=== PATIENT | female | born 1990 | race Two or more races ===

== ENCOUNTER 2025-06-21 07:58 | Outpatient (RCR) | payer MEDICAID, SELFPAY ==
--- NOTE | 2025-06-21 08:40 | PT.OIERPT ---
PT OP Initial Eval Patient Information Outpatient Physical Therapy Treatment Date: 06/21/25 Visit Reasons: pain in left knee Medical Diagnosis: M25.562 Treatment Dx #1: L knee pain Start of Care: 06/21/25 Date of Onset: 2 yrs ago Smoking Status Smoking Status: Never smoker Initial Assessment Subjective: Pt is 34 yr old female reports onset of L knee pain stepping in a hole 2 yrs ago. She reports pain with taking a small step up stairs or curb and at night time. This limits fast walking, jogging, prolonged walking, squatting, getting out of a chair. PMH: none reported Imaging: MRI of L knee Mild sprain anterior cruciate ligament?? Pt goal: to get rid of the knee pain Objective: L knee AROM: Extension: full Flexion: 125 deg SLR: 35 deg with lateral knee pain Le strength: Quads: 4/5 HS: 4/5 Patella compression: negative Yonatan's: positive with tibial ER Varus stress: significant gapping >5mm Anterior drawer: no tibial translation Assessment: Pt presentation consistent with increased Q-angle to loads the lateral meniscus and pulls patella laterally. Pt has significant varus gapping which likely affects patella tracking and lateral stability. Pt may benefit from skilled therapy to meet goals and has poor/fair rehab potential. PT recommends knee brace for stability. I didn't get any ACL laxity with anterior drawer testing. 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 Ind with HEP 2. Pt will get out of a chair x5 without knee pain 3. Pt will ambulate x community distances with <=3/10 L knee pain Treatment Plan 1. Manual therapy ? 2. Therex ? 3. Modalities as indicated, MHP, ice, TENS Frequency and Duration: 1-2x a week for 3 trial visits, if progressing continue, if not reassess Certification Dates: 06/21/25 to 08/19/25 Procedure Charges OP PT Eval Mod Complex 30 minutes: Yes
== END 2025-06-24 23:59 | disposition home or self-care (01) ==
LOC: CPTX 07:58
PROVIDERS: PCP Physician Assistant; Referring Provider Physician Assistant; Visit Provider Physician Assistant
DX: M25.562 Pain in left knee (principal)
CPT/HCPCS: 97162

== ENCOUNTER 2025-06-28 09:20 | Outpatient (RCR) | payer MEDICAID, SELFPAY ==
--- NOTE | 2025-06-28 11:04 | PT.ODAYNRPT ---
PT Outpatient Daily Note OP Daily Note Outpatient Physical Therapy Treatment Date: 06/28/25 Visit Reasons: left knee pain Subjective: Pt reports that she has been wearing L knee brace and feels like it has been helping. Pt c/o knee feeling loose when riding sci-fit stationary bicycle in PT clinic. Objective: Please see flow sheet for ther ex list. Assessment: Pt tolerated interventions with no complaints. Plan: Continue with pOC, assess response to treatment. Length of Time (minutes) of Treatment: 30 Minutes Procedure Charges Therapeutic Exercise 30 minutes: Yes
--- NOTE | 2025-07-12 17:50 | PTNOTE_ITS ---
PT OP Progress/Discharge Note Date of Service: 07/12/25 Progress Note/DC Note Progress Note/Discharge Note: DC Note Patient Information Visit Reasons: left knee pain Service Continue Service or Discharge: Discharge Discharge Date: 07/12/25 Status Assessment: Pt attended the initial evaluation and 1 Rx visit and then no showed on 07/04, 07/10 and 07/12 which is not in compliance with attendance policy. Pt?s attendance is not consistent enough to make progress with goals. Thank you for your refe rrals. Plan: D/C
== END 2025-07-24 23:59 | disposition home or self-care (01) ==
LOC: CPTX 09:20
PROVIDERS: PCP Physician Assistant; Referring Provider Physician Assistant; Visit Provider Physician Assistant
DX: M25.562 Pain in left knee (principal)
CPT/HCPCS: 97110

== ENCOUNTER 2025-07-23 08:25 | Emergency (ER) | payer MEDICAID, SELFPAY ==
[2025-07-23 08:42] VITALS: BP 121/83; PULSE 88; RESP 18; TEMP 36.9; O2SAT 99
--- NOTE | 2025-07-23 08:48 | XR_ITS ---
Examination: Complete OB ultrasound, less than 14 weeks, transabdominal Date and time of exam: July 23, 2025, 1133 hours INDICATIONS: Pelvic cramping beginning 2 months ago Technique: Obstetrical ultrasound images less than 14 weeks performed via transabdominal imaging Findings: A normal shaped single intrauterine gestation is present in the uterus. CRL 2.8 cm corresponds to 9 weeks 4 days gestational age Cardiac motion 138 BPM Ultrasonographic survey of visible and placental structures unremarkable. Amniotic fluid volume appears appropriate for this estimated gestational age. Right ovary 3.4 cm arterial flow. Left ovary 3.2 cm arterial flow IMPRESSION: Viable intrauterine gestation 9 weeks 4 days.
--- NOTE | 2025-07-23 08:52 | PD.EDPREG ---
ED OB Contraction Preg RMI/HPI General Chief complaint: OB/Uterine Contractions Stated complaint: UTERINE CRAMPING, PREG 8WKS Time Seen by Provider: 07/23/25 08:29 Source: patient Arrival date/time: 07/23/25 08:25 34-year-old female with no known medical history presents to the emergency room with a chief complaint of lower abdominal cramping x 3 days. Patient is currently 8 weeks . She is a Mode of arrival: ambulatory Limitations: no limitations Related Data Previous Rx's ?Medication ?Instructions ?Recorded meloxicam 7.5 mg tablet 7.5 mg PO BID #45 tabs 09/10/23 meloxicam 7.5 mg tablet 7.5 mg PO QDAY #45 tabs 03/31/24 Allergies Allergy/AdvReac Type Severity Reaction Status Date / Time No Known Allergies Allergy Verified 07/23/25 08:28 Review of Systems Review of Systems Systems Reviewed: All systems reviewed, normal except as documented Constitutional Constitutional: Reports system reviewed and no additional complaints, except as documented, Denies fatigue, Denies fever(s), Denies headache(s) and Denies weakness Eyes Eyes: Reports system reviewed and no additional complaints, except as documented, Denies blurry vision and Denies change in vision ENT Ears, Nose, Mouth, and Throat: Reports system reviewed and no additional complaints, except as documented, Denies otalgia, Denies headache(s), Denies nasal congestion, Denies throat swelling and Denies vertigo Cardiovascular Cardiovascular: Reports system reviewed and no additional complaints, except as documented, Denies chest pain, Denies dyspnea and Denies dyspnea on exertion Respiratory Respiratory: Reports system reviewed and no additional complaints, except as documented, Denies chest congestion, Denies cough, Denies dyspnea, Denies dyspnea on exertion and Denies wheezing Gastrointestinal Gastrointestinal: Reports system reviewed and no additional complaints, except as documented, Denies abdominal pain, Denies cramping, Denies nausea and Denies vomiting Genitourinary Genitourinary: Reports system reviewed and no additional complaints, except as documented, Denies abnormal vaginal bleeding and Reports pelvic pain Musculoskeletal Musculoskeletal: Reports system reviewed and no additional complaints, except as documented and Denies back pain Integumentary/Breasts Skin/Breast: Reports system reviewed and no additional complaints, except as documented and Denies wounds Neurologic Neurologic: Reports system reviewed and no additional complaints, except as documented, Denies confusion, Denies headache(s), Denies lack of coordination, Denies vertigo and Denies weakness Psychiatric Psychiatric: Reports system reviewed and no additional complaints, except as documented, Denies anxiety, Denies confusion, Denies depression, Denies paranoia, Denies suicidal ideation and Denies tactile hallucinations Endocrine Endocrine: Reports system reviewed and no additional complaints, except as documented and Denies fatigue Hematologic/Lymphatic Hematologic/Lymphatic: Reports system reviewed and no additional complaints, except as documented and Denies lymphadenopathy Allergic/Immunologic Allergic/Immunologic: Reports system reviewed and no additional complaints, except as documented, Denies throat swelling, Denies urticaria and Denies wheezing Past Medical History Past Medical History NEUROLOGIC: Positive Neurological Disorders and Migraine; Negative Seizures CARDIAC: Negative Cardiac Disorders or Congestive Heart Failure RESPIRATORY: Negative Chronic Obstructive Pulmonary Disease (COPD) GASTROINTESTINAL: Negative Gastrointestinal Disorders or Hepatitis GENITOURINARY: Negative Genitourinary Disorders or Renal Disease REPRODUCTIVE: Positive Previous Pregnancies; Negative Endometriosis, Pelvic Inflammatory Disease or Uterine Prolapse MUSCULOSKELETAL: Negative Musculoskeletal Disorders ENDOCRINE: Negative Endocrine Disorders, Diabetes Mellitus Type 1 or Diabetes Mellitus Type 2 HEMATOLOGIC: Positive Anemia; Negative Blood Disorders OTHER HISTORY: Positive Chicken Pox; Negative Hospitalization, Autoimmune Disease, Down Syndrome, Developmental Delay, Shingles, Falls, Blood Transfusions, Blood Transfusion Reaction, Anesthesia Reactions, Organ Transplant, Chemotherapy, Radiation Therapy, Hyperbaric Therapy, MRSA, VRSA, Vancomycin-Resistant Enterococci, Human Immunodeficiency Virus (HIV), Measles, Mumps, Rubella (Vietnamese Measles), Pertussis, Clostridium Difficile or Cancer Family History FAMILY HISTORY: Negative Family Psychiatric Problems, Family Respiratory Disorders, Family Cardiac Disorders, Family Gastrointestinal Problems, Family Cancer, Family Surgery or Family Anesthesia Reaction Surgical History SURGICAL: Negative Section or Organ Transplant Social History SMOKING STATUS: Never smoker SECOND HAND EXPOSURE: No ED Exam General Limitations: Present no limitations General appearance: Present alert and in no apparent distress Head Head exam: Present atraumatic Eye Eye exam: Present normal appearance, PERRL and EOMI ENT ENT exam: Present normal exam, normal oropharynx and mucous membranes moist Neck Neck exam: Present normal inspection, full ROM and trachea midline Chest Chest inspection: Present normal inspection and symmetric chest wall rise Respiratory Respiratory exam: Present normal lung sounds bilaterally Cardiovascular Cardiovascular exam: Present regular rate, normal rhythm and normal heart sounds Abdominal Exam Abdominal exam: Present soft and normal bowel sounds; Absent distention, tenderness, guarding or rebound Extremities Exam Extremities exam: Present normal inspection and full ROM Back Exam Back exam: Present normal inspection and full ROM Neurological Exam Neurological exam: Present alert, oriented X3 and CN II-XII intact Psychiatric Psychiatric exam: Present normal affect and normal mood Skin Skin exam: Present warm, dry, intact and normal color Course Quality Measures none Orders Category Date Time Status US OB <= 14 weeks fetus Stat Exams 07/23/25 08:48 Completed ABO/RH Type Stat Lab 07/23/25 08:57 Completed Beta HCG,Quantitative Stat Lab 07/23/25 08:57 Completed CBC Stat Lab 07/23/25 08:57 Completed CMP [Comprehensive Metabolic Panel] Stat Lab 07/23/25 08:57 Completed UA [Urinalysis] Stat Lab 07/23/25 09:00 Completed Vital Signs Vital signs: Vital Signs Temperature 98.5 F 07/23/25 08:42 Pulse Rate 88 07/23/25 08:42 Respiratory Rate 18 07/23/25 08:42 Blood Pressure 121/83 07/23/25 08:42 Pulse Oximetry (%) 99 07/23/25 08:42 Oxygen Delivery Method Room Air 07/23/25 08:42 OB/Uterine Contractions MDM Narrative MDM Narrative:: 34-year-old female with no known medical history presents to the emergency room with a chief complaint of lower abdominal cramping x 3 days. Patient is currently 8 weeks . She is a Patient is hemodynamically stable and in no apparent distress Physical examination shows some lower abdominal cramping that has been going on for the last 3 days. There is no vaginal bleeding, dysuria, or hematuria. The abdominal cramping is not unilateral it is spread around the pelvic area and is worse with palpation. An OB ultrasound was completed and shows a viable intrauterine gestation at 9 weeks and 4 days. heart tones are 138 bpm. hCG levels are at 89,073. CBC CMP were within normal limits. Urinalysis is within normal limits Patient was discharged and educated to follow-up with primary care provider in the next 24 to 48 hours and return to the emergency room for any evidence of worsening signs or symptoms Patient data External records reviewed:: [facility] previous records Clinical information provided by:: patient Social determinants that could affect healthcare access:: none Patient has the following chronic illnesses:: No chronic How is presenting disease/condition affected by chronic disease/condition?: no chronic disease Evaluation data The following diagnostics were reviewed and interpreted by me:: lab results and radiology exam(s) Lab and/or radiology exams considered but not ordered:: Labs and radiology exams considered and ordered Interpretation Summary: Ultrasound OB-Findings: A normal shaped single intrauterine gestation is present in the uterus. CRL 2.8 cm corresponds to 9 weeks 4 days gestational age Cardiac motion 138 BPM Ultrasonographic survey of visible and placental structures unremarkable. Amniotic fluid volume appears appropriate for this estimated gestational age. Right ovary 3.4 cm arterial flow. Left ovary 3.2 cm arterial flow IMPRESSION: Viable intrauterine gestation 9 weeks 4 days. Medications / Prescriptions Medications or Prescriptions considered but not ordered:: No medication given Medication administrations:: No medication given Consultations Consultation(s) initiated? (list below): No Diagnosis OB Contractions Differential Diagnosis: other (Abdominal cramping in /ectopic /threatened ) Most likely diagnosis given after review of the tests above:: Abdominal cramping in Admission Indicated Admission indicated?: not indicated Explain why admission is indicated or not indicated:: N/A Admission Request Was there a request for admission?: No Disposition Plan Disposition Plan: Discharge Discharge Attestation Discharge Attestation: The patient and all family members were given an opportunity to ask questions and understood the discharge instructions. Discharge instructions specifically effects, indications for sooner follow up or return to the emergency department, and the expected course of current diagnosis. Patient condition: Stable Discharge Plan Plan Patient Disposition: HOME (Self Care) Discharge Disposition comment: Stable Prescriptions/Referrals Prescriptions/Med Rec: No Action meloxicam 7.5 mg tablet 7.5 mg PO QDAY Qty: 45 3RF meloxicam 7.5 mg tablet 7.5 mg PO BID Qty: 45 3RF Referrals: Bin Serrano PA-C [Primary Care Provider, Emergency Medicine] - In 1 week Problem List Clinical Impression: Abdominal pain affecting Patient/Caregiver Discharge Instructions Education Materials: Abdominal Pain Additional Instructions: Please follow-up with your ACCOUNTING RECONCILIATION CLERK in the next 24 to 48 hours Your ultrasound was completed and at this time shows a in good standing at 9 weeks and 4 days. Your hCG levels are 89,073 For any evidence of worsening signs or symptoms please return to the emergency room immediately Print Language: Telugu Stand Alone Forms: Monse Award Info., Work/School Release, Patient Portal Info Letter PA/SCRAP METAL COLLECTOR Supervising Physician PA/SCRAP METAL COLLECTOR Supervising Physician: Dr. Laurent
[2025-07-23 09:05] LABS: Collection Type, Urine Clean Catch
[2025-07-23 09:22] LABS: Basophils # (Auto) 0.1 Thou/mm3 (0.0-0.2); Basophils % (Auto) 1 % (0-2.5); Eosinophils # (Auto) 0.1 Thou/mm3 (0.0-0.5); Eosinophils % (Auto) 1 % (0-10); Hematocrit 41.1 % (36.0-46.0); Hemoglobin 14.3 g/dL (12.0-16.0); Immature Granulocytes Auto 0.04 Thou/mm3 (0.00-0.00); Lymphocytes # (Auto) 1.9 Thou/mm3 (1.0-4.8); Lymphocytes % (Auto) 18 % (10-50); Mean Corpuscular HGB Conc 34.8 g/dl (31.0-37.0); Mean Corpuscular Hemoglobin 32.0 pg (25.0-35.0); Mean Corpuscular Volume 92 fL (80-100); Monocytes # (Auto) 0.7 Thou/mm3 (0.0-0.8); Monocytes % (Auto) 7 % (0-12); Neutrophils # (Auto) 7.4 Thou/mm3 (1.8-7.7); Neutrophils % (Auto) 73 % (37-80); Nucleated Red Blood Cell # 0.00 Thou/mm3 (0.00-0.00); Nucleated Red Blood Cell % 0 /100 WBC (0); Platelet Count 349 Thou/mm3 (140-440); RDW Standard Deviation 42.3 fL (36.4-46.3); Red Blood Count 4.47 Miln/mm3 (4.00-5.20); White Blood Count 10.1 Thou/mm3 (3.6-11.0)
[2025-07-23 09:25] LABS: Bilirubin,Urine Negative (Negative); Blood,Urine Negative (Negative); Clarity,Urine Clear (Clear/Hazy); Color,Urine Colorless (Lt Yel-Yel); Glucose, Urine Negative (Negative); Ketones,Urine Negative (Negative); Leukocyte Esterase,Urine Negative (Negative); Nitrite,Urine Negative (Negative); PH,Urine 6.5 (5.0-7.0); Protein,Urine Negative (Neg - Trace); RBC,Urine < 1 /hpf (0-3); Specific Gravity,Urine 1.004 (1.001-1.035); Squamous Epithelial Cell,Urine 1 /hpf (0-5); Urobilinogen,Urine Negative mg/dL (0.0-1.0); WBC,Urine 1 /hpf (0-5)
[2025-07-23 09:29] LABS: Alanine Aminotransferase 37 U/L (10-49); Albumin, Serum 4.5 gm/dL (3.5-5.0); Albumin/Globulin Ratio 1.9 (1.2-2.2); Alkaline Phosphatase 47 U/L (46-116); Anion Gap 10 (7-16); Aspartate Amino Transferase 23 U/L (0-34); BUN/Creatinine Ratio 10 Ratio (12-20); Bilirubin,Total 0.4 mg/dL (0.3-1.2); Blood Urea Nitrogen 6 mg/dL (9-23); Calcium 9.6 mg/dL (8.3-10.6); Calcium (Corrected) 9.6 mg/dL (8.5-10.1); Carbon Dioxide 21.5 mMol/L (20.0-31.0); Chloride 105 mMol/L (98-107); Creatinine (Component) 0.6 mg/dL (0.6-1.3); Globulin 2.4 gm/dL (2.3-3.5); Glucose 89 mg/dL (74-106); Osmolality,Calculated 268 (275-295); Potassium 3.7 mMol/L (3.4-5.1); Sodium 136 mMol/L (136-145); Total Protein 6.9 gm/dL (5.7-8.2); eGFR > 60 See Note
== END 2025-07-23 12:32 | disposition home or self-care (01) ==
PROVIDERS: Nurse Practitioner Family; Emergency Provider Internal Medicine; PCP Physician Assistant
DX: O26.891 Other specified pregnancy related conditions, first trimester (principal); R10.2 Pelvic and perineal pain; Z3A.09 9 weeks gestation of pregnancy
CPT/HCPCS: 36415; 76801; 80053; 81001; 84702; 85025; 86900; 86901; 99283

== ENCOUNTER 2025-08-24 14:25 | Outpatient (AMB) | payer MEDICAID, SELFPAY ==
[2025-08-24 14:53] VITALS: BP 115/71; PULSE 84; RESP 18; TEMP 36.2; O2SAT 97; BMI 28.2
--- NOTE | 2025-08-24 14:53 | AMB.OBINITIA ---
Vital Signs 08/24/25 14:53 Height 1.63 m Height Method Stated Weight 75.013 kg Weight Measurement Method Standing Scale BMI 28.2 BP 115/71 Blood Pressure Source Automatic Cuff Blood Pressure Location Left Upper Arm Position Standing Respiration 18 Pulse 84 Pulse Source Monitor Temp 97.2 F Temp Source Oral Pulse Oximetry (%) 97 Oxygen Delivery Method Room Air Allergies/Home Meds Allergies & Medications Allergies No Known Allergies Allergy (Verified 08/24/25 14:54) Medication Reconciliation vits no.126-ferrous fum 28 mg iron-folic acid 800 mcg tablet (Classic ) 1 tab PO DAILY 90 days #90 tabs 08/24/25 [Rx] Intake Visit Data Collection New Patient or Established: Established Patient (seen at [facility] within 3 years) Reason for Visit:: OBI Seen by Clinical Staff ONLY (RN/MA): No State Director Required: No Do You Feel Safe at Home: Yes Authorities Contacted: N/A PCP or OBGYN visit in last 3 months: Yes Hx Now: Yes Are you currently on any form of Control: No Pain Present Currently: No Pain Scale Used: Mata-Dominguez/Numerical Pain scale:: 0 Smoking Status Smoking Status: Never smoker Immunizations Flu Vaccine in the Last 12 Months: No Flu Vaccine Exclusion Criteria: No Exclusion Criteria Questionnaires Covid-19 Vaccine Questionnaire Has patient been vacinated for Covid-19 Have you been vacinated for Covid-19: No PHQ-9 PHQ-2 Over the last 2 weeks, how often have you been bothered by any of the following problems? 1. Little interest or pleasure in doing things: not at all 2. Feeling down, depressed, or hopeless: not at all Total score: 0 PHQ-9 3. Trouble falling or staying asleep, or sleeping too much: Not at all 4. Feeling tired or having little energy: Not at all 5. Poor appetite or overeating: Not at all 6. Feeling bad about yourself - or that you are a failure or have let yourself or your family down: Not at all 7. Trouble concentrating on things, such as reading the newspaper or watching television: Not at all 8. Moving or speaking so slowly that other people could have noticed? - Or the opposite - being so fidgety or restless that you have been moving around a lot more than usual: not at all 9. Thoughts that you would be better off or of hurting yourself in some way: Not at all Total score: 0 If you checked off any problems, how difficult have these problems made it for you to do your work, take care of things at home, or get along with other people?: not difficult at all Source: Developed by Drs. Feliciano Garcia, Dina Simms, Jose Mcneil and colleagues, with an educational usha from [employer]. Depression screen completed yes Social History Living Situation History Marital Status: Single Housing: House Tobacco History Smoking Status: Never smoker Second Hand Smoke Exposure: No Alcohol History Alcohol Intake: Never Domestic Abuse History Do You Feel Safe at Home: Yes History of Present Illness HPI Narrative ?34 Years old G?5P?3at gestational age 14 weeks ?based on last menstrual period of dated?.05/18/2025 No complaints so far Here for first visit LPS not sure but not too long ago LMP 05/18/2025 Ultrasound had one in ED a few weeks ago at [facility] medical problems denies Allergies Surgical history denies social history 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 Medical History Past Medical History: Yes Hx Neurological Disorders, No Hx Cardiac Disorders, No Hx Cancer, No Hx Blood Disorders, Yes Hx Anemia, No Hx Gastrointestinal Disorders, No Hx Renal Disease, No Hx Diabetes Mellitus Type 1 and No Hx Diabetes Mellitus Type 2 OB Initial Visit OB Flowsheet OB Flowsheet Initial Weight: Not Recorded Date <del>?</del> EGA Weight BP Alb Glu CTX Pres Fundal ht FHR Mov Dilation Station Effacement Hx Notes Visit Note 08/24/25 <del>?</del> 14w 0d 75.013 kg 115/71 14 155 active Menstrual History Menstrual reliability: definite Flow: normal Menstrual regularity: regular Monthly: Yes Age at menarche: 13 On control pills at conception: No OB History : 5 Para: 3 Hx Total # of Abortions (Spontaneous & Elective): 1 # of Living Children: 3 Delivery History 1st : Child's name: NA date: 03/17/14 sex: female Delivery type: vaginal Delivery complications: NA History of depression before or after : No 2nd : Child's name: NA date: 07/27/18 sex: female Delivery type: vaginal Delivery complications: NA History of depression before or after : No 3rd : Child's name: NA date: 09/12/20 sex: male Delivery type: vaginal History of depression before or after : No Infection History & Risk Evaluation History of STDs: none HIV risk evaluation: low risk Hepatitis B risk evaluation: low risk Patient or partner has history of Genital Herpes: No Varicella/chicken pox status: immunized Genetic Screening & History Genetic Screening/Teratology Counseling - Includes patient, baby's father, or anyone in either family with: 1. Patient's age 35 years or older as of estimated date of delivery: No 2. Thalassemia (Vietnamese, Dutch, Mediterranean, or Background); MCV less than 80: No 3. Neural Tube Defect (Meningomyelocele, Spina Bifida, or Anencephaly): No 4. Congenital Heart Defect: No 5. Down Syndrome: No 6. Josemanuel-Sachs (Ashkenazi Congregation, Cajun, Swedish [place]): No 7. Monica Disease (Ashkenazi Congregation): No 8. Familial Dysautonomia (Ashkenazi Congregation): No 9. Sickle Cell Disease or Trait (): No 10. Hemophilia or other blood disorders: No 11. Muscular Dystrophy: No 12. Cystic Fibrosis: No 13. Walworth's Chorea: No 14. Mental Retardation/Autism: No 15. Other inherited genetic or chromosomal disorder: No 16. Maternal Metabolic Disorder (EG,TYPE 1 Diabetes, PKU): No 17. Patient or baby's father had a child with defects not listed above: No 18. Recurrent loss or a stillbirth: No 19. Medications (including supplements, vitamins, herbs or otc drugs)/illicit/recreational drugs/alcohol since last menstrual period: No 20. Any other: No Infection History 1. Live with someone with TB or exposed to TB: No 2. Rash or viral illness since last menstrual period: No 3. Hepatitis B,C: No Other (see comments) Source: [employer] Review of Systems Review of Systems Narrative Review of Systems: cramps and occasional dizziness Systems Reviewed: All systems reviewed, normal except as documented Exam Narrative Physical exam: Alert and oriented x 3 no shortness of breath Pain no chest pain no palpitations Chest clear bilaterally no additional sounds, no wheezing no rales CVS regular rate and rhythm No CVAT Abdomen nontender, normal bowel sounds No guarding no rigidity No hernias Office Procedures OBC Clinic LOC & Office Proc's Nursing/Assessment Patient Status: Established Patient OB Clinic Nursing Assessment: Medication Reconciliation, Update PMH in EMR and Vital Signs OB Clinic Coordination of Care: Consent,records obtained, informed consent, Education Simp Pt/Fam, Lab and Imaging orders, Results/Orders obtained and Staff clarify orders Special Needs: Heart tones Established Patient Charge Established Patient Point Assignment: 110 Established Patient Point Charge: EP Level 3 (80-115) Assessment & Plan Diagnosis / Problem List (1) : Status: Acute Qualifiers: Weeks of gestation: 14 weeks Qualified Code(s): Z3A.14 - 14 weeks gestation of (2) Pelvic cramping: Status: Acute Plan order NIPT/Carrier screening First trimester prenatals and also refer for anatomy scan and note for light duty order pills
== END 2025-08-24 16:07 | disposition home or self-care (01) ==
LOC: HODSOBC 14:25
PROVIDERS: PCP Physician Assistant; Referring Provider Physician Assistant; Supervising Provider Obstetrics & Gynecology; Visit Provider Obstetrics & Gynecology
DX: O09.892 Supervision of other high risk pregnancies, second trimester (principal); O99.891 Other specified diseases and conditions complicating pregnancy; R10.20 Pelvic and perineal pain unspecified side; Z3A.14 14 weeks gestation of pregnancy
CPT/HCPCS: 99213; G0463

== ENCOUNTER 2025-09-24 09:27 | Outpatient (AMB) | payer MEDICAID, SELFPAY ==
[2025-09-24 09:36] VITALS: BP 110/74; PULSE 93; RESP 18; TEMP 36.4; O2SAT 98; BMI 29.0
--- NOTE | 2025-09-24 09:36 | OBCLNT_ITS ---
Vital Signs 09/24/25 09:36 Height 1.63 m Height Method Stated Weight 77.167 kg Weight Measurement Method Standing Scale BMI 29.0 BP 110/74 Blood Pressure Source Automatic Cuff Blood Pressure Location Right Upper Arm Position Sitting Respiration 18 Pulse 93 Pulse Source Monitor Temp 97.6 F Temp Source Temporal Artery Scan Pulse Oximetry (%) 98 Oxygen Delivery Method Room Air Allergies/Home Meds Allergies & Medications Allergies No Known Allergies Allergy (Verified 09/24/25 09:36) Medication Reconciliation vits no.126-ferrous fum 28 mg iron-folic acid 800 mcg tablet (Classic ) 1 tab PO DAILY 90 days #90 tabs 08/24/25 [Rx Confirmed 09/24/25] Immunizations Immunizations Flu Vaccine in the Last 12 Months: No Flu Vaccine Exclusion Criteria: Refused by Patient Care OB Visit Log OB Flowsheet Initial Weight: Not Recorded Date -?-?-?-?-?-?-?-?-?-?-?-?- EGA Weight BP Alb Glu CTX Pres Fundal ht FHR Mov Dilation Station Effacement Hx Notes Visit Note 08/24/25 -?-?-?-?-?-?-?-?-?-?-?-?- 14w 0d 75.013 kg 115/71 14 155 active 09/24/25 -?--?-?-?-?-?-?-?-?-?-?-?- 18w 3d 77.167 kg 110/74 absent unknown 18 152 active LANEY Calculator Estimated Delivery Date Method Current WG Current Estimate 02/22/26 LMP (Certain) 18w 4d Notes Visit Date: 09/24/25 Last Updated by: Kelly Mcginnis MD Visit Date: 08/24/25 Last Updated by: Kelly Mcginnis MD 34 years old at 14 weeks by LMP of 05/18/2025 at her first visit bedside US 08/24/2025 c/w 14.5 weeks by BPD NIPT negative / MSAFP done earlier than 15 weeks and needs to be repeated /A positive/ Rubella Immune / HepB / HCV/ HIV /RPR are negative /Hb is 13.5 and platelets are 333 on 08/27/2025 / 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 and also occasionally dizzy taking PNV requesting light duty / will provide for 6 weeks and reassess Order first trimester prenatals and also AFP and also NIPT and carrier screening and order a second trimester anatomy scan with cervical length / follow up in 4 weeks Office Procedures OBC Clinic LOC & Office Proc's Nursing/Assessment Patient Status: Established Patient OB Clinic Nursing Assessment: Medication Reconciliation, Update PMH in EMR and Vital Signs OB Clinic Coordination of Care: Complex Care and Chronic Disease 1-5, Education Complex Pt/Fam, Consent,records obtained, informed consent, Lab and Imaging orders, Results/Orders obtained and Staff clarify orders Special Needs: Heart tones Established Patient Charge Established Patient Point Assignment: 140 Established Patient Point Charge: EP Level 4 (120-155) Assessment & Plan Diagnosis / Problem List (1) Pelvic cramping: Status: Acute Assessment and Plan: start disability from 08/27/2025 (2) : Status: Acute Qualifiers: Weeks of gestation: 14 weeks Qualified Code(s): Z3A.14 - 14 weeks gestation of Plan: S=D / follow up in 4 weeks / repeat MSAFP (3) Pelvic pain: Status: Acute Qualifiers: Laterality: unspecified laterality Qualified Code(s): R10.20 - Pelvic and perineal pain unspecified side (4) 18 weeks gestation of : Status: Acute Plan 4 weeks Additional Plan NIPT negative / MSAFP done earlier than 15 weeks and needs to be repeated /A positive/ Rubella Immune / HepB / HCV/ HIV /RPR are negative /Hb is 13.5 and platelets are 333 on 08/27/2025 / 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 Starting from 08/27/2025 Follow Up: 4 Weeks
== END 2025-09-24 10:09 | disposition home or self-care (01) ==
LOC: HODSOBC 09:27
PROVIDERS: Supervising Provider Obstetrics & Gynecology; Visit Provider Obstetrics & Gynecology
DX: O09.892 Supervision of other high risk pregnancies, second trimester (principal); O99.891 Other specified diseases and conditions complicating pregnancy; R10.20 Pelvic and perineal pain unspecified side; R25.2 Cramp and spasm; Z3A.18 18 weeks gestation of pregnancy; Z28.21 Immunization not carried out because of patient refusal
CPT/HCPCS: 99214; G0463